=== PATIENT | female | born 1955 | race African-American/Black ===

== ENCOUNTER 2016-10-22 07:36 | Emergency (ER) | payer SELFPAY ==
[2016-10-22 07:54] VITALS: BP 143/94
[2016-10-22] MEDS ORDERED: diphenhydrAMINE 50 MG Cap PO ONE (08:09)
--- NOTE | 2016-10-22 08:17 | EDM.PDOC ---
ED HPI GENERAL MEDICAL PROBLEM - General Chief Complaint: Skin Complaint Stated Complaint: POSS. BED BUGS-EYES SWOLLEN Time Seen by Provider: 10/22/16 07:56 Source of Information: Reports: Patient, Family History Limitations: Reports: No Limitations - History of Present Illness INITIAL COMMENTS - FREE TEXT/NARRATIVE: The patient presents with possible bed but bites. She was at the [facility] here in town and at about 3am she started getting bit. She now has some red areas and edema to her back, both legs, both arms and face. She denies any shortness of breath or chest pain. She did take some pictures and it did appear to be bed bugs. Onset: Sudden Duration: Hour(s): (3am) Location: Reports: Face, Upper Extremity, Left, Upper Extremity, Right, Lower Extremity, Left, Lower Extremity, Right Quality: Reports: Sharp Severity: Mild Improves with: Reports: None Worsens with: Reports: None Context: Reports: Activity (She was sleeping) Associated Symptoms: Reports: No Other Symptoms - Related Data Allergies Allergy/AdvReac Type Severity Reaction Status Date / Time Penicillins Allergy Hives Verified 10/22/16 07:57 Home Meds: Home Meds Lisinopril [Zestril] 2.5 mg PO DAILY 10/22/16 [History] Past Medical History Cardiovascular History: Reports: Hypertension Dermatologic History: Reports: Eczema, Psoriasis Social & Family History - Tobacco Use Smoking Status *Q: Never Smoker - Caffeine Use Caffeine Use: Reports: Coffee - Recreational Drug Use Recreational Drug Use: No ED ROS GENERAL - Review of Systems Review Of Systems: See Below Constitutional: Reports: No Symptoms HEENT: Reports: No Symptoms Respiratory: Reports: No Symptoms Cardiovascular: Reports: No Symptoms Endocrine: Reports: No Symptoms GI/Abdominal: Reports: No Symptoms : Reports: No Symptoms Musculoskeletal: Reports: Other (Bites to her face, arms, legs and low back) ED EXAM, SKIN/RASH Exam: See Below Exam Limited By: No Limitations General Appearance: Alert, No Apparent Distress Ears: Normal External Exam Nose: Normal Inspection Head: Other (Edema to the right side of her face) Neck: Normal Inspection Respiratory/Chest: No Respiratory Distress, Lungs Clear, Normal Breath Sounds Cardiovascular: Regular Rate, Rhythm, No Edema, No Murmur GI/Abdominal: Soft, Non-Tender, No Organomegaly, No Mass Back Exam: Other (Edema to her low back) Extremities: Other (Edema to both arms with erythema) Course - Vital Signs Last Recorded V/S: Last Vital Signs Temp 97.1 F 10/22/16 07:50 Pulse 70 10/22/16 07:50 Resp 18 10/22/16 07:50 BP 143/94 H 10/22/16 07:50 Pulse Ox 100 10/22/16 07:50 - Orders/Labs/Meds Meds: Medications Discontinued Medications Generic Name Dose Route Start Last Admin Trade Name Mark PRN Reason Stop Dose Admin Diphenhydramine HCl 50 mg 10/22/16 08:09 Benadryl PO 10/22/16 08:10 ONETIME ONE - Re-Assessments/Exams Free Text/Narrative Re-Assessment/Exam: 10/22/16 08:17 I will give her some benadryl and I reported this to the state. Departure - Departure Time of Disposition: 08:20 Disposition: Home, Self-Care 01 Condition: Good Clinical Impression: Bed bug bite Qualifiers: Encounter type: initial encounter Qualified Code(s): W57.XXXA - Bitten or stung by nonvenomous insect and other nonvenomous arthropods, initial encounter - Discharge Information Referrals: Mary Crane PA-C [[facility]] - 1 Week Forms: ED Department Discharge Additional Instructions: Clean the bites with warm soapy water. You may but benadryl cream or hydrocortisone cream on the bites. You may also take some benadryl for the edema. If the redness gets worse or stays for a few days you may need to be evaluated again for possible infection. Please return of see Mary Crane if that happens.
== END 2016-10-22 08:36 | disposition home or self-care (01) ==
LOC: JD.ED 07:36
DX: S00.86XA Insect bite (nonvenomous) of other part of head, initial encounter (principal); S30.860A Insect bite (nonvenomous) of lower back and pelvis, initial encounter; S40.862A Insect bite (nonvenomous) of left upper arm, initial encounter; S40.861A Insect bite (nonvenomous) of right upper arm, initial encounter; I10 Essential (primary) hypertension; Z88.0 Allergy status to penicillin; Z79.899 Other long term (current) drug therapy; W57.XXXA Bitten or stung by nonvenomous insect and other nonvenomous arthropods, initial encounter
CPT/HCPCS: 99282; A9270